=== PATIENT | male | born 1970 | race Caucasian/White ===

== ENCOUNTER 2021-06-28 13:53 | Emergency (ER) | payer OTHER, SELFPAY ==
[2021-06-28] VITALS (11 sets, daily range): BP systolic 149–169; BP diastolic 83–91; PULSE 76–98; RESP 13–23; TEMP 36.7; O2SAT 94–100
--- NOTE | ~2021-06-28 | XR_ITS ---
EXAMINATION: XR chest 2V DATE: 06/28/2021 14:26 INDICATION: Chest pain. TECHNIQUE: Frontal and lateral views of the chest were obtained. COMPARISON: Chest 2 views 04/17/2019 FINDINGS: There is mild atelectasis versus scarring in right mid and lower lung zones. No pleural eff usion or pneumothorax. The heart size is normal. IMPRESSION: 1. Mild atelectasis versus scarring in right mid and lower lung zones. Reviewed, dictated and finalized at location A.
--- NOTE | 2021-06-28 13:56 | ECG_ITS ---
Measurements Intervals [place] Rate: 93 P: 27 SC: 161 QRS: -13 QRSD: 98 T: 81 QT: 340 QTc: 425 Interpretive Statements SINUS RHYTHM ANTEROSEPTAL INFARCT, AGE INDETERMINATE INFERIOR INFARCT, AGE INDETERMINATE ABNORMAL ECG Electronically Signed On 06-28-2021 14:24:47 CDT by Micheal Gonzales D.O.
[2021-06-28 14:27] LABS: Basophils Absolute Auto 0.1 K/mm3 (0.0-0.1); Basophils Percent Auto 0.6 % (0.2-1.2); Eosinophils Absolute Auto 0.6 K/mm3 (0-0.3); Eosinophils Percent Auto 4.8 % (0-4.4); Hematocrit 49.4 % (42.0-52.0); Hemoglobin 16.4 g/dL (14.0-18.0); Immature Granulocyte Absolute 0.03 K/mm3 (0.00-0.031); Immature Granulocyte Percent A 0.3 % (0-0.5); Lymphocytes Absolute Auto 3.43 K/mm3 (0.9-3.2); Lymphocytes Percent Auto 29.4 % (18.3-44.2); Mean Corpuscular HGB Conc 33.2 g/dl (32-36); Mean Corpuscular Hemoglobin 28.5 pg (26-34); Mean Corpuscular Volume 85.9 fl (80-100); Mean Platelet Volume 12.4 fl (7.4-10.4); Monocytes Absolute Auto 0.7 K/mm3 (0.1-0.6); Monocytes Percent Auto 5.7 % (2.6-8.5); Neutrophils Absolute Auto 6.9 K/mm3 (1.3-6.7); Neutrophils Percent Auto 59.2 % (45.5-73.1); Platelet Count Result 191 k/mm3 (150-375); Red Blood Count 5.75 M/mm3 (4.6-6.20); Red Cell Distribution Width 13.4 % (11.5-14.5); White Blood Count 11.7 K/mm3 (4.5-10.0)
[2021-06-28 14:41] LABS: INR 0.9; Prothrombin Time 11.8 Seconds (11.1-14.7)
[2021-06-28 14:43] LABS: Anion Gap 12 mmol/L (8-16); Blood Urea Nitrogen 13 mg/dL (9-20); Calcium 9.2 mg/dL (8.4-10.2); Carbon Dioxide 21 mmol/L (22-30); Chloride 99 mmol/L (98-107); Estimated CRCL calculation 111 ml/min; Estimated Glomerular Filt Rate > 60; Glucose 455 mg/dL (65-110); Potassium 4.8 mmol/L (3.4-5.0); Sodium 132 mmol/L (137-145)
[2021-06-28 14:50] LABS: Troponin I < 0.012 ng/mL (0.000-0.034)
[2021-06-28] MEDS: ASPIRIN 81 MG CHEWABLE TABLET 324 MG PO (16:00)
--- NOTE | 2021-07-03 15:35 | ED.CHESTPAIN ---
HPI - Chest Pain General Chief Complaint: Chest Pain Stated Complaint: chest pain Time Seen by Provider: 06/28/21 14:27 History of Present Illness HPI narrative: Patient left without being seen. Due to seriousness of complaint had patient sign AMA form. Related Data Allergies Allergy/AdvReac Type Severity Reaction Status Date / Time No Known Allergies Allergy Unverified 04/17/19 10:45 Course Vital Signs Vital signs: Vital Signs Temperature 36.7 C 06/28/21 14:09 Pulse Rate 92 06/28/21 14:09 Respiratory Rate 18 06/28/21 14:09 Blood Pressure 156/91 H 06/28/21 14:09 Pulse Oximetry 99 06/28/21 14:09 Temperature 36.7 C 06/28/21 14:09 Pulse Rate 76 06/28/21 17:12 Respiratory Rate 18 06/28/21 17:12 Blood Pressure 169/90 H 06/28/21 17:12 Pulse Oximetry 98 06/28/21 17:12 MDM - Chest Pain Lab Data Result diagrams: 06/28/21 14:10 06/28/21 14:09 Labs: Lab Results 06/28/21 06/28/21 06/28/21 Range/Units 14:09 14:09 14:10 WBC 11.7 H (4.5-10.0) K/mm3 RBC 5.75 (4.6-6.20) M/mm3 Hgb 16.4 (14.0-18.0) g/dL Hct 49.4 (42.0-52.0) % MCV 85.9 (80-100) fl MCH 28.5 (26-34) pg MCHC 33.2 (32-36) g/dl RDW 13.4 (11.5-14.5) % Plt Count 191 (150-375) k/mm3 MPV 12.4 H (7.4-10.4) fl Immature Gran % (Auto) 0.3 (0-0.5) % Neut % (Auto) 59.2 (45.5-73.1) % Lymph % (Auto) 29.4 (18.3-44.2) % [place] % (Auto) 5.7 (2.6-8.5) % Eos % (Auto) 4.8 H (0-4.4) % Baso % (Auto) 0.6 (0.2-1.2) % Lymph # (Auto) 3.43 H (0.9-3.2) K/mm3 [place] # (Auto) 0.7 H (0.1-0.6) K/mm3 Eos # (Auto) 0.6 H (0-0.3) K/mm3 Baso # (Auto) 0.1 (0.0-0.1) K/mm3 Abs Immat Gran (auto) 0.03 (0.00-0.031) K/mm3 Absolute Neuts (auto) 6.9 H (1.3-6.7) K/mm3 Absolute Nucleated RBC 0.0 (0.0-0.012) K/mm3 Nucleated RBC % 0.0 (0.0-0.2) % PT 11.8 (11.1-14.7) Seconds INR 0.9 APTT 20.0 L (22.3-36.8) SECONDS Sodium 132 L (137-145) mmol/L Potassium 4.8 (3.4-5.0) mmol/L Chloride 99 (98-107) mmol/L Carbon Dioxide 21 L (22-30) mmol/L Anion Gap 12 (8-16) mmol/L BUN 13 (9-20) mg/dL Creatinine 0.80 (0.7-1.3) mg/dL Estim Creat Clear Calc 111 ml/min Estimated GFR > 60 (59 - ) Glucose 455 H (65-110) mg/dL Calcium 9.2 (8.4-10.2) mg/dL Troponin I < 0.012 (0.000-0.034) ng/mL Discharge Plan Discharge Clinical Impression: Biliary colic Chest pain Qualifiers: Chest pain type: unspecified Qualified Code(s): R07.9 - Chest pain, unspecified Patient Disposition: Left Against Medical Advice Condition: Stable Instructions: Antibiotic Form, Chest Pain (ED), Biliary Colic (ED), Against Medical Advice (ED) Additional Instructions: You are leaving AGAINST MEDICAL ADVICE I advise you to stay for further evaluation due to your heart disease. Return immediately if fever, intractable vomiting, inability tolerate fluids or medications worsening pain or any concern. Return if chest pain shortness of breath or productive cough. Continue all medications and follow-up with your specialists this week without fail Follow-up/Referrals: Stabell,Ronaldo C, MD [Primary Care Provider] - 1 Day (chest pain, biliary colic) Stand Alone Forms: Work/School Release IP Time of Disposition: 16:54
== END 2021-06-28 17:14 | disposition left against medical advice (07) ==
PROVIDERS: Emergency Medicine; Emergency Provider Emergency Medicine; PCP Internal Medicine Infectious Disease
DX: K80.50 Calculus of bile duct without cholangitis or cholecystitis without obstruction (principal); R07.9 Chest pain, unspecified; R94.31 Abnormal electrocardiogram [ECG] [EKG]; R91.8 Other nonspecific abnormal finding of lung field
CPT/HCPCS: 36415; 71046; 80048; 84484; 85025; 85610; 85730; 93005; 99284; A9270